=== PATIENT | female | born 2000 | race Caucasian/White ===

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

== ENCOUNTER 2021-01-04 10:30 | Observation (INO) | payer OTHER, SELFPAY ==
[~2021-01-04] VITALS: Ht 152.4 cm; Wt 60.8 kg
[~2021-01-04 10:30] MED LIST: DOXY1TCP PO
[2021-01-04 11:50] VITALS: BP 108/58
[2021-01-04] MEDS ORDERED: PRETAB PO (11:55)
== END 2021-01-04 14:15 | disposition home or self-care (01) ==
LOC: MLD 10:30
PROVIDERS: ADMIT Obstetrics & Gynecology; ATTEND Obstetrics & Gynecology
DX: O26.892 Other specified pregnancy related conditions, second trimester (principal); R10.9 Unspecified abdominal pain; Z3A.22 22 weeks gestation of pregnancy
CPT/HCPCS: 36415; 59025; 76817; 81000; 86886; 86900; 86901; G0378

== ENCOUNTER 2021-03-05 23:45 | Observation (INO) | payer OTHER, SELFPAY ==
[~2021-03-05 23:45] MED LIST changes: +PRETAB PO
[2021-03-06] MEDS ORDERED: BETAMETH ACET/BETAMETH NA PH 30 MG/5 ML VIAL IM SCH (01:15)
[2021-03-06 01:55] LABS: BASOPHILS % (AUTO) 0.2 % (0.0-2.0); EOSINOPHILS # (AUTO) 0.1 K/uL (0-0.4); EOSINOPHILS % (AUTO) 0.8 % (0.0-4.0); HEMATOCRIT 30.9 % (36-48); HEMOGLOBIN 10.6 g/dL (12.0-16.0); LYMPHOCYTES # (AUTO) 2.2 K/uL (2.5-16.5); LYMPHOCYTES % (AUTO) 17.9 % (20.5-51.1); MEAN CORPUSCULAR HEMOGLOBIN 32 pg (27-31); MEAN CORPUSCULAR HGB CONC 34 g/dL (33-37); MEAN CORPUSCULAR VOLUME 94.1 fL (80-94); MONOCYTES # (AUTO) 1.3 K/uL (0.8-1.0); MONOCYTES % (AUTO) 10.7 % (1.7-9.3); NEUTROPHILS # (AUTO) 8.8 K/uL (1.8-7.7); NEUTROPHILS % (AUTO) 70.4 % (42.2-75.2); PLATELET COUNT (AUTO) 321 K/uL (140-450); RED BLOOD CELL COUNT(AUTO) 3.29 MIL/uL (4.20-5.40); RED CELL DISTRIBUTION WIDTH 11.9 % (11.6-13.7); WHITE BLOOD COUNT (AUTO) 12.4 K/uL (4.5-11.0)
[2021-03-06] MEDS ORDERED: LACTATED RINGERS 1,000 ML IV SCH (04:10)
[2021-03-06 05:34] LABS: ALBUMIN 2.3 g/dL (3.4-5.0); ANION GAP 14.2 (8-16); CARBON DIOXIDE 24.2 mmol/L (21-32); CREATININE 0.6 mg/dL (0.6-1.3); POTASSIUM 3.4 mmol/L (3.5-5.1); TOTAL BILIRUBIN 0.2 mg/dL (0.0-1.0)
[2021-03-06 05:40] LABS: APPEARANCE,URINE CLEAR (CLEAR); BILIRUBIN,URINE NEGATIVE (NEGATIVE); BLOOD, URINE NEGATIVE (NEGATIVE); COLOR,URINE YELLOW (YELLOW); LEUKOCYTE ESTERASE ,URINE NEGATIVE (NEGATIVE); NITRITE, URINE NEGATIVE (NEGATIVE); UGLUCOSE NEGATIVE (NEGATIVE)
== END 2021-03-06 10:55 | disposition home or self-care (01) ==
LOC: MFCC 23:45
PROVIDERS: ADMIT Obstetrics & Gynecology; ATTEND Obstetrics & Gynecology
DX: O47.03 False labor before 37 completed weeks of gestation, third trimester (principal); O99.283 Endocrine, nutritional and metabolic diseases complicating pregnancy, third trimester; E87.6 Hypokalemia; O99.013 Anemia complicating pregnancy, third trimester; D64.9 Anemia, unspecified; O99.113 Other diseases of the blood and blood-forming organs and certain disorders involving the immune mechanism complicating pregnancy, third trimester; D72.829 Elevated white blood cell count, unspecified; Z3A.30 30 weeks gestation of pregnancy; Z88.0 Allergy status to penicillin; Z79.899 Other long term (current) drug therapy
CPT/HCPCS: 36415; 59025; 76805; 80053; 81003; 85025; 86886; 86900; 86901; 87086; 96360; 96361; G0378; G0379; J0702; Q0092

== ENCOUNTER 2021-04-03 18:00 | Observation (INO) | payer OTHER, SELFPAY ==
[~2021-04-03] VITALS: Ht 154.9 cm; Wt 65.8 kg
[~2021-04-03 18:00] MED LIST changes: -DOXY1TCP PO
[2021-04-03 18:28] VITALS: BP 118/77
[2021-04-03] MEDS ORDERED: LACTATED RINGERS 1,000 ML IV SCH (19:20)
[2021-04-03] MEDS ORDERED: ACETAMINOPHEN EXTRA STRENGTH 500 MG TAB PO PRN (19:20)
[2021-04-03 19:27] LABS: APPEARANCE,URINE CLEAR (CLEAR); BILIRUBIN,URINE NEGATIVE (NEGATIVE); BLOOD, URINE NEGATIVE (NEGATIVE); COLOR,URINE YELLOW (YELLOW); LEUKOCYTE ESTERASE ,URINE TRACE (NEGATIVE); NITRITE, URINE NEGATIVE (NEGATIVE); PH,URINE 6.5 (5.0-9.0); UGLUCOSE NEGATIVE (NEGATIVE)
[2021-04-03 19:41] LABS: RBC,URINE 0-5 /HPF (0-5)
== END 2021-04-03 20:15 | disposition home or self-care (01) ==
LOC: MLD 18:00
PROVIDERS: ADMIT Obstetrics & Gynecology; ATTEND Obstetrics & Gynecology
DX: O26.893 Other specified pregnancy related conditions, third trimester (principal); R10.9 Unspecified abdominal pain; Z3A.35 35 weeks gestation of pregnancy
CPT/HCPCS: 59025; 76805; 81001; 87086; 87426; G0378; Q0092

== ENCOUNTER 2021-05-01 11:30 | Inpatient (IN) | payer OTHER, SELFPAY ==
[~2021-05-01] VITALS: Ht 154.9 cm; Wt 73.9 kg
[2021-05-01 12:10] VITALS: BP 112/56
[2021-05-01] MEDS ORDERED: CARBOPROST 250 MCG/ML AMP IM PRN (13:00)
[2021-05-01] MEDS ORDERED: OXYTOCIN 20 UNITS in LACTATED RINGERS 1,000 ML IV SCH (13:00)
[2021-05-01] MEDS ORDERED: METHYLERGONOVINE 0.2 MG/ML AMP IM PRN (13:00)
[2021-05-01 13:42] LABS: BASOPHILS # (AUTO) 0.1 K/uL (0.00-0.22); BASOPHILS % (AUTO) 0.5 % (0.0-2.0); EOSINOPHILS % (AUTO) 0.1 % (0.0-4.0); HEMOGLOBIN 10.2 g/dL (12.0-16.0); LYMPHOCYTES # (AUTO) 1.4 K/uL (2.5-16.5); LYMPHOCYTES % (AUTO) 12.2 % (20.5-51.1); MEAN CORPUSCULAR HEMOGLOBIN 29 pg (27-31); MEAN CORPUSCULAR HGB CONC 33 g/dL (33-37); MONOCYTES # (AUTO) 0.8 K/uL (0.8-1.0); MONOCYTES % (AUTO) 7.3 % (1.7-9.3); NEUTROPHILS # (AUTO) 9.3 K/uL (1.8-7.7); NEUTROPHILS % (AUTO) 79.9 % (42.2-75.2); PLATELET COUNT (AUTO) 331 K/uL (140-450); RED BLOOD CELL COUNT(AUTO) 3.53 MIL/uL (4.20-5.40); RED CELL DISTRIBUTION WIDTH 13.8 % (11.6-13.7); WHITE BLOOD COUNT (AUTO) 11.6 K/uL (4.5-11.0)
[2021-05-01 13:56] LABS: APPEARANCE,URINE CLEAR (CLEAR); BILIRUBIN,URINE NEGATIVE (NEGATIVE); BLOOD, URINE NEGATIVE (NEGATIVE); COLOR,URINE YELLOW (YELLOW); LEUKOCYTE ESTERASE ,URINE NEGATIVE (NEGATIVE); NITRITE, URINE NEGATIVE (NEGATIVE); PH,URINE 7.5 (5.0-9.0); UGLUCOSE NEGATIVE (NEGATIVE)
[2021-05-01 14:05] LABS: ALBUMIN 2.7 g/dL (3.4-5.0); ANION GAP 16.4 (8-16); CARBON DIOXIDE 22.3 mmol/L (21-32); CREATININE 0.6 mg/dL (0.6-1.3); POTASSIUM 3.7 mmol/L (3.5-5.1); TOTAL BILIRUBIN 0.5 mg/dL (0.0-1.0)
[2021-05-01 14:08] LABS: BARBITURATE, URINE NEGATIVE ng/ml (NEG <=200); BENZODIAZEPINE, URINE NEGATIVE ng/mL (NEG <=200); CANNABINOID, URINE POSITIVE ng/mL (NEG <=50); COCAINE, URINE NEGATIVE ng/mL (NEG <=300); OPIATE, URINE NEGATIVE ng/mL (NEG <=2000); PHENCYCLIDINE SCREEN,URINE NEGATIVE ng/mL (NEG <=25)
[2021-05-01] MEDS: LACTATED RINGERS 1,000 ML IV SCH ×2 (16:39→21:46)
[2021-05-01] MEDS ORDERED: ACETAMINOPHEN 325 MG TAB ONE (18:43)
[2021-05-01] MEDS: ACETAMINOPHEN 325 MG TAB PO PRN (18:46)
[2021-05-01] MEDS ORDERED: ONDANSETRON 4 MG/2 ML VIAL IVP PRN (18:55)
[2021-05-01] MEDS ORDERED: fentaNYL citrate 0.05 MG/ML VIAL IVP PRN (19:00)
[2021-05-02] MEDS ORDERED: MISOPROSTOL 25 MCG TAB VG SCH
[2021-05-02] MEDS: ACETAMINOPHEN 325 MG TAB PO PRN ×2 (01:14→21:32)
[2021-05-02] MEDS: LACTATED RINGERS 1,000 ML IV SCH ×2 (01:16→11:00)
[2021-05-02] MEDS ORDERED: ROPIVACAINE 0.2%/NS PREMIX 200 ML EPI ONE (07:14)
[2021-05-02] MEDS ORDERED: OXYTOCIN 20 UNITS/LR PREMIX 1,000 ML IV ONE (08:28)
--- NOTE | 2021-05-02 08:47 | NUR ---
PATIENT HAS BEEN SCREENED AND CATEGORIZED LOW NUTRITION RISK. PATIENT WILL BE SEEN WITHIN 7 DAYS OF ADMISSION. 05/07/[address]
[2021-05-02] MEDS ORDERED: LIDOCAINE 1% 500 MG/50 ML VIAL ONE (14:48)
[2021-05-02] MEDS ORDERED: LIDOCAINE MPF 1% 10 MG/ML VIAL INJ SCH (14:50)
[2021-05-02] MEDS ORDERED: SIMETHICONE 80 MG TAB.CHEW PO PRN (15:25)
[2021-05-02] MEDS ORDERED: METHYLERGONOVINE 0.2 MG/ML AMP IM PRN (15:25)
[2021-05-02] MEDS ORDERED: BENZOCAINE/MENTHOL 20%-0.5% 60 GM CAN TP PRN (15:25)
[2021-05-02] MEDS ORDERED: IBUPROFEN 800 MG TAB PO PRN (15:25)
[2021-05-02] MEDS ORDERED: METHYLERGONOVINE 0.2 MG TAB PO PRN (15:25)
[2021-05-02] MEDS ORDERED: MEASLES, MUMPS, AND RUBELLA 1 VIAL SQVAC ONE (15:25)
[2021-05-02] MEDS ORDERED: bisacodyL 5 MG TABEC PO PRN (15:25)
[2021-05-02] MEDS ORDERED: OXYTOCIN 10 UNITS/ML VIAL IM PRN (15:25)
[2021-05-02] MEDS ORDERED: DOCUSATE SODIUM 100 MG GELCAP PO PRN (15:25)
[2021-05-02] MEDS ORDERED: IBUPROFEN 600 MG TAB PO PRN (15:25)
[2021-05-02] MEDS ORDERED: MEASLES, MUMPS, AND RUBELLA 1 VIAL SQVAC PRN (15:30)
[2021-05-03] MEDS: ACETAMINOPHEN 325 MG TAB PO PRN ×2 (04:44→16:06)
[2021-05-03 08:33] LABS: HEMATOCRIT 28.3 % (36-48); HEMOGLOBIN 9.4 g/dL (12.0-16.0)
[2021-05-03 13:52] LABS: HEPATITIS B SURFACE ANTIGEN NEGATIVE (NEGATIVE)
[2021-05-04] MEDS: ACETAMINOPHEN 325 MG TAB PO PRN (06:40)
== END 2021-05-04 12:00 | disposition home or self-care (01) | DRG 560 ==
LOC: OBSVTOIN 11:30 → MLD 11:30 → MFCC 05-02 17:55
PROVIDERS: ADMIT Obstetrics & Gynecology; ATTEND Obstetrics & Gynecology
PROC: 10E0XZZ Delivery of Products of Conception, External Approach (ICD-10-PCS; principal; 2021-05-02)
PROC: 3E0R3BZ Introduction of Anesthetic Agent into Spinal Canal, Percutaneous Approach (ICD-10-PCS; 2021-05-02)
PROC: 00HU33Z Insertion of Infusion Device into Spinal Canal, Percutaneous Approach (ICD-10-PCS; 2021-05-02)
PROC: 0HQ9XZZ Repair Perineum Skin, External Approach (ICD-10-PCS; 2021-05-02)
DX: O70.0 First degree perineal laceration during delivery (principal); Z37.0 Single live birth; R71.0 Precipitous drop in hematocrit; Z20.822 Contact with and (suspected) exposure to COVID-19; Z3A.38 38 weeks gestation of pregnancy
CPT/HCPCS: 36415; 51702; 59200; 59409; 76815; 80053; 80305; 81003; 85018; 85025; 86592; 86762; 86886; 86900; 86901; 87340; 87653-90; J2001; J2405; J2590; J2795; J3010; Q0092

== ENCOUNTER 2022-02-08 18:01 | Emergency (ER) | payer OTHER ==
[~2022-02-08] VITALS: Ht 154.9 cm; Wt 61.2 kg
[2022-02-08 18:04] VITALS: BP 114/66
--- NOTE | 2022-02-08 18:13 | NUR ---
PT AMB TO BED 2.
--- NOTE | 2022-02-08 18:29 | NUR ---
22 y/o female bib self with c/o swelling to right knuckle and finger from s/p bee sting x yesterday. This is patients first time being stung by a bee. Area is swollen, red and hot. Patient has been taking Tylenol and Benadryl with minimal relief. Medical History: Denies NKDA
--- NOTE | 2022-02-08 18:42 | NUR ---
Dr. Wolf evaluating patient at bedside.
[2022-02-08] MEDS ORDERED: KETOROLAC 60 MG/2 ML VIAL IM ONE (18:50)
[2022-02-08] MEDS ORDERED: SULF-59 PO (19:05)
[2022-02-08] MEDS ORDERED: IBUP-2213 PO (19:05)
[2022-02-08] MEDS ORDERED: PRED20TA5 PO (19:05)
[2022-02-08] MEDS ORDERED: DIPH25TA53 PO (19:05)
--- NOTE | 2022-02-08 19:12 | NUR ---
Pt report given to VIANCA Booth. Transfer of care at this time.
[2022-02-08 19:26] VITALS: BP 107/61
--- NOTE | 2022-02-08 19:30 | NUR ---
Patient discharged with v/s stable. Written and verbal after care instructions given and explained. Patient alert, oriented and verbalized understanding of instructions. Ambulatory with steady gait. All questions addressed prior to discharge. ID band removed. Patient advised to follow up with PMD. Rx of BENADRYL,IBUPROFEN,PREDNISONE, BACTRIM given. Patient educated on indication of medication including possible reaction and side effects. Opportunity to ask questions provided and answered.
== END 2022-02-08 19:30 | disposition home or self-care (01) ==
LOC: MED 18:01
DX: T63.441A Toxic effect of venom of bees, accidental (unintentional), initial encounter (principal); L03.011 Cellulitis of right finger; Z79.899 Other long term (current) drug therapy; Z88.5 Allergy status to narcotic agent; Z88.0 Allergy status to penicillin; Y92.89 Other specified places as the place of occurrence of the external cause
CPT/HCPCS: 96372; 99283; J1885

== ENCOUNTER 2023-03-22 19:22 | Emergency (ER) | payer OTHER ==
[~2023-03-22] VITALS: Ht 154.9 cm; Wt 61.2 kg
[~2023-03-22 19:22] MED LIST changes: +DIPH25TA53 PO; +IBUP-2213 PO; +PRED20TA5 PO; +SULF-59 PO
[2023-03-22 19:38] VITALS: BP 117/85; PULSE 80; RESP 16; TEMP 97.8; O2SAT 97
[2023-03-22] MEDS ORDERED: KETOROLAC 60 MG/2 ML VIAL IM ONE (20:15)
[2023-03-22] MEDS ORDERED: ACET-8905 PO (20:55)
[2023-03-22] MEDS ORDERED: IBUP-2213 PO (20:55)
[2023-03-22 21:15] VITALS: BP 107/60; PULSE 74; RESP 16; TEMP 97.8; O2SAT 97
== END 2023-03-22 21:15 | disposition home or self-care (01) ==
LOC: MED 19:22
DX: R51.9 Headache, unspecified (principal); R10.32 Left lower quadrant pain; F17.210 Nicotine dependence, cigarettes, uncomplicated; Z79.899 Other long term (current) drug therapy; Z79.1 Long term (current) use of non-steroidal anti-inflammatories (NSAID); Z79.2 Long term (current) use of antibiotics; Z88.5 Allergy status to narcotic agent; Z88.0 Allergy status to penicillin
CPT/HCPCS: 81025; 96372; 99284; J1885

== ENCOUNTER 2024-03-07 09:46 | Emergency (ER) | payer SELFPAY ==
[~2024-03-07] VITALS: Ht 154.9 cm; Wt 66.8 kg
[~2024-03-07 09:46] MED LIST changes: +ACET-8905 PO
[2024-03-07 10:04] VITALS: BP 110/44; PULSE 76; RESP 16; TEMP 97.8; O2SAT 99
== END 2024-03-07 10:26 | disposition left against medical advice (07) ==
LOC: MED 09:46
DX: R10.31 Right lower quadrant pain (principal); R11.2 Nausea with vomiting, unspecified; R68.83 Chills (without fever); Z53.21 Procedure and treatment not carried out due to patient leaving prior to being seen by health care provider; Z88.0 Allergy status to penicillin; Z88.8 Allergy status to other drugs, medicaments and biological substances